=== PATIENT | female | born 1980 ===

== ENCOUNTER 2024-05-17 06:51 | Day surgery (SDC) | payer OTHER ==
[~2024-05-17 06:51] MED LIST: IRON236 MG PO; LOTREL 5-10 MG1 CAP PO; ROSUVASTATIN CAL5 MG PO
[2024-05-17] MEDS ORDERED: POVIDONE-IODINE 118 ML BOTT TOP ONE (16:46)
[2024-05-17] MEDS ORDERED: MEPERIDINE HCL/PF 50 MG/ML VIAL IM PRN (17:45)
[2024-05-17] MEDS ORDERED: PROMETHAZINE HCL 50 MG/ML AMPUL IM PRN (17:45)
== END 2024-05-17 22:40 | disposition home or self-care (01) ==
LOC: CIR.AMB 06:51
PROVIDERS: ATTEND Obstetrics & Gynecology
DX: N84.0 Polyp of corpus uteri (principal); N92.0 Excessive and frequent menstruation with regular cycle; I10 Essential (primary) hypertension